=== PATIENT | female | born 1940 | race Caucasian/White ===

== ENCOUNTER 2018-01-15 12:00 | Emergency (ER) | payer MEDICARE, BC ==
--- NOTE | 2018-01-15 12:37 | RAD ---
SINGLE VIEW OF THE CHEST: Comparison: 06-05-12 History: Cough for one week. FINDINGS: Single view of the chest shows a normal sized cardiomediastinal silhouette. There is no evidence of c onsolidation, mass, or pleural effusion. Bone anchors are seen in the right humerus from prior right shoulder surgery. IMPRESSION: No evidence of acute cardiopulmonary disease. POS: [facility]
[2018-01-15 12:43] LABS: #Basophils 0.1 thou/uL (0.0-0.2); #Eosinphils 0.2 thou/uL (0.0-0.7); #Lymphocytes 1.4 thou/uL (1.20-3.40); #Monocytes 0.5 thou/uL (0.11-0.59); #Neutrophils 3.4 thou/uL (1.40-6.50); %Basophils 1.6 % (0.0-1.0); %Eosinophils 2.7 % (0.0-10.0); %Lymphocytes 24.3 % (21.0-51.0); %Monocytes 9.5 % (0.0-10.0); %Neutrophils 61.8 % (42.0-75.0); Hemoglobin 13.1 g/dL (12.0-16.0); Mean Corpuscular HGB CONC 34.3 g/dL (32.0-36.0); Mean Corpuscular Hemoglobin 30.6 pg (27.0-31.0); Mean Corpuscular Volume 89.2 fL (78.0-98.0); Mean Platelet Volume 9.9 fL (7.4-10.4); Platelet Count 138 thou/uL (130-400); RBC Distribution Width 11.2 % (11.5-14.5); Red Blood Cell (RBC) Count 4.27 mill/uL (4.20-5.40); White Blood Cell (WBC) Count 5.5 thou/uL (4.8-10.8)
[2018-01-15 12:56] LABS: ALT (SGPT) 21 U/L (8-55); AST (SGOT) 20 U/L (5-34); Albumin 4.2 g/dL (3.4-4.8); Alkaline Phosphatase 80 U/L (40-150); Anion Gap 11 mmol/L (10-20); BUN (Urea Nitrogen) 16 mg/dL (9.8-20.1); Bilirubin, Total 0.8 mg/dL (0.2-1.2); CK (CPK) 78 U/L (29-168); Calc. Creatinine Clearance 0 mL/min (70-130); Calcium 9.4 mg/dL (7.8-10.44); Carbon Dioxide 28 mmol/L (23-31); Chloride 108 mmol/L (98-107); Estimated GFR-MDRD 61; Globulin 2.1 g/dL (2.4-3.5); Glucose 136 mg/dL (83-110); Potassium 3.9 mmol/L (3.5-5.1); Protein, Total 6.3 g/dL (6.0-8.3); Sodium 143 mmol/L (136-145)
[2018-01-15 12:57] LABS: CKMB 1.7 ng/mL (0-6.6); Troponin I Less than 0.010 ng/mL (< 0.028)
== END 2018-01-15 13:21 | disposition home or self-care (01) ==
LOC: SCSER 12:00
DX: L03.114 Cellulitis of left upper limb (principal); I25.2 Old myocardial infarction; E03.9 Hypothyroidism, unspecified; F41.9 Anxiety disorder, unspecified; F32.9 Major depressive disorder, single episode, unspecified; Z79.899 Other long term (current) drug therapy
CPT/HCPCS: 71045; 80053; 82553; 84484; 85025; 93005

== ENCOUNTER 2019-03-23 14:34 | Outpatient (CLI) | payer MEDICARE, BC ==
--- NOTE | 2019-03-23 15:04 | RAD ---
EXAM: Chest PA and lateral: HISTORY: Chest pain. Patient fell onto left side on Friday. COMPARISON: 01/15/2018 FINDINGS: Heart: Normal cardiac silhouette. There is a density projecting over the left hemidiaphragm and left heart border. The possibility left diaphragmatic hernia versus eventration of the left hemidiaphragm is raised. Aorta: Unremarkable Pulmonary vessels: Normal Costophrenic angles: Costophrenic angles are clear. Lungs: No masses or consolidation. Hyperinflation with chronic changes. Pneumothorax: No pneumothorax Osseous structures: No osseous abnormalities IMPRESSION: 1. Hyperinflation. Chronic changes. 2. Left diaphragmatic hernia versus eventration of the left hemidiaphragm 3. No pneumothorax.
--- NOTE | 2019-03-23 15:07 | RAD ---
3 VIEWS LEFT CHEST WALL: Date: 03/23/19 INDICATION: History of fall with left-sided rib pain. COMPARISON: Prior chest radiograph dated 01/15/18. 2 view chest radiograph dated 03/23/19. FINDINGS: There is a stable, fat-containing left Bochdalek's hernia. No pneumothorax is evident. 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 No displaced left-ion ed rib fracture is evident. There is mild thoracolumbar scoliosis. IMPRESSION: No displaced left-sided rib fracture. POS: [facility]
== END 2019-03-23 14:35 | disposition home or self-care (01) ==
LOC: BICRAD 14:34
PROVIDERS: ATTEND Internal Medicine
DX: R07.89 Other chest pain (principal); Z91.81 History of falling; J98.4 Other disorders of lung
CPT/HCPCS: 71046

== ENCOUNTER 2019-08-16 10:09 | Outpatient (CLI) | payer MEDICARE, BC ==
--- NOTE | 2019-08-16 12:22 | BD ---
BONE DENSITOMETRY: Date: 08/16/2019 HISTORY: Postmenopausal osteoporosis screening. FINDINGS: Lumbar Spine: BMD (g/cm2) L1 0.820 T-Score: -1.5 L2 0.848 T-Score: -1.6 L3 0.962 T-Score: -1.1 L4 1.002 T-Score: -0.5 Total 0.919 T-Score: -1.2 Left Femoral Neck: 0.600 T-Score: -2.2 Total Femur: 0.876 T-Score: -0.5 IMPRESSION: Bone mineral density of the lumbar spine and femoral neck both indicate osteopenia. POS: [facility]
== END 2019-08-16 10:10 | disposition home or self-care (01) ==
LOC: BICMAMMO 10:09
PROVIDERS: ATTEND Internal Medicine
DX: M81.0 Age-related osteoporosis without current pathological fracture (principal); M85.89 Other specified disorders of bone density and structure, multiple sites
CPT/HCPCS: 77080

== ENCOUNTER 2025-03-15 09:02 | Outpatient (CLI) | payer MEDICARE | END 2025-03-15 09:03 | disposition home or self-care (01) | LOC: SCSMRI 09:02 | PROVIDERS: ATTEND Pain Medicine Interventional Pain Medicine | DX: M48.062 Spinal stenosis, lumbar region with neurogenic claudication (principal); M51.369 Other intervertebral disc degeneration, lumbar region without mention of lumbar back pain or lower extremity pain; M47.816 Spondylosis without myelopathy or radiculopathy, lumbar region; M51.379 Other intervertebral disc degeneration, lumbosacral region without mention of lumbar back pain or lower extremity pain; M47.817 Spondylosis without myelopathy or radiculopathy, lumbosacral region; M51.35 Other intervertebral disc degeneration, thoracolumbar region | CPT/HCPCS: 72148 ==

== ENCOUNTER 2025-03-15 09:08 | Outpatient (CLI) | payer MEDICARE | END 2025-03-15 09:09 | disposition home or self-care (01) | LOC: SCSRAD 09:08 | PROVIDERS: ATTEND Pain Medicine Interventional Pain Medicine | DX: M47.816 Spondylosis without myelopathy or radiculopathy, lumbar region (principal); M41.9 Scoliosis, unspecified; M43.17 Spondylolisthesis, lumbosacral region; M48.062 Spinal stenosis, lumbar region with neurogenic claudication; M51.369 Other intervertebral disc degeneration, lumbar region without mention of lumbar back pain or lower extremity pain; M51.379 Other intervertebral disc degeneration, lumbosacral region without mention of lumbar back pain or lower extremity pain; M51.35 Other intervertebral disc degeneration, thoracolumbar region | CPT/HCPCS: 72120; 72148 ==

== ENCOUNTER 2025-06-23 06:33 | Observation (INO) | payer MEDICARE, BC ==
[2025-06-23 08:02] LABS: ALT (SGPT) 8 U/L (Less than 34); AST (SGOT) 27 U/L (11-34); Albumin 3.9 g/dL (3.1-4.5); Alkaline Phosphatase 60 U/L (40-110); Anion Gap 9 mmol/L (10-20); BUN (Urea Nitrogen) 11 mg/dL (9.8-20.1); Bilirubin, Total 1.1 mg/dL (0.3-1.2); Calc. Creatinine Clearance 0 mL/min (70-130); Calcium 9.0 mg/dL (7.8-10.44); Carbon Dioxide 27 mmol/L (23-31); Chloride 105 mmol/L (98-107); Globulin 2.5 g/dL (2.4-3.5); Glucose 94 mg/dL (83-110); Potassium 3.4 mmol/L (3.5-5.1); Sodium 138 mmol/L (136-145)
[2025-06-23 08:03] LABS: Magnesium 1.8 mg/dL (1.6-2.6)
[2025-06-23 08:09] LABS: #Basophils 0.05 10x3/uL (0.0-0.2); #Eosinophils 0.14 10x3/uL (0.0-0.7); #Monocytes 0.46 10x3/uL (0.11-0.59); #Neutrophils 2.09 10x3/uL (1.40-6.50); %Basophils 1.3 % (0.0-1.0); %Eosinophils 3.7 % (0.0-10.0); %Lymphocytes 27.5 % (21.0-51.0); %Monocytes 12.0 % (0.0-10.0); %Neutrophils 54.7 % (42.0-75.0); Hematocrit 32.3 % (36.0-47.0); Hemoglobin 10.4 g/dL (12.0-16.0); Mean Corpuscular Hemoglobin 29.8 pg (27.0-31.0); Mean Corpuscular Volume 92.6 fL (78.0-98.0); Platelet Count 126 10x3/uL (130-400); Red Blood Cell (RBC) Count 3.49 mill/uL (4.20-5.40); White Blood Cell (WBC) Count 3.82 10x3/uL (4.8-10.8)
[2025-06-23 08:24] LABS: Free T4 (Free Thyroxine) 1.15 ng/dL (0.70-1.48)
[2025-06-23] MEDS ORDERED: Aspirin Chewable 81 MG TAB ONE (08:33)
[2025-06-23 08:57] LABS: Bacteria/HPF None Seen HPF (None Seen); CAUTI Indications for Culture Alt mental st,lethar; Glucose, Urine (Dipstick) Normal (Negative); Leukocyte Negative Leu/uL (Negative); Protein, Urine (Dipstick) Negative (Neg-Trace); RBC/HPF 0-3 HPF (0-3); Specific Gravity, Urine 1.012 (1.002-1.036); WBC/HPF 0-3 HPF (0-3)
[2025-06-23 09:01] LABS: Urine Culture Reflex No No
[2025-06-23] MEDS ORDERED: hydrALAZINE 20 MG/ML VIAL SLOW IVP PRN (11:00)
[2025-06-23] MEDS ORDERED: Ondansetron PF 4 MG/2 ML Vial IVP PRN (11:18)
[2025-06-23] MEDS ORDERED: Senokot S 8.6-50 MG TAB PO PRN (11:18)
[2025-06-23] MEDS ORDERED: Calcium Carbonate 500 MG ChewTAB PO PRN (11:18)
[2025-06-23] MEDS ORDERED: Acetaminophen 325 MG TAB PO PRN (11:18)
[2025-06-23 15:57] VITALS: BMI 23.0
[2025-06-23] MEDS: Carvedilol 3.125 MG TAB PO SCH (18:18)
[2025-06-23] MEDS: ALPRAZolam 0.5 MG TAB PO PRN (22:06)
[2025-06-23] MEDS: Melatonin 3 MG TAB PO PRN (22:06)
[2025-06-24 04:43] LABS: Anion Gap 13 mmol/L (10-20); BUN (Urea Nitrogen) 10 mg/dL (9.8-20.1); Calc. Creatinine Clearance 44 mL/min (70-130); Calcium 8.8 mg/dL (7.8-10.44); Carbon Dioxide 27 mmol/L (23-31); Cardiac Risk 3.5 (Less than 4.5); Chloride 106 mmol/L (98-107); Cholesterol 108 mg/dl (< 200 Desired); Glucose 83 mg/dL (83-110); HDL Cholesterol 31 mg/dL (>60 Neg Risk); LDL Cholesterol, Calculated 62 mg/dL; Potassium 3.5 mmol/L (3.5-5.1); Sodium 142 mmol/L (136-145); Triglycerides 74 mg/dL (Less than 150)
[2025-06-24 04:52] LABS: #Basophils 0.05 10x3/uL (0.0-0.2); #Eosinophils 0.16 10x3/uL (0.0-0.7); #Monocytes 0.51 10x3/uL (0.11-0.59); #Neutrophils 1.92 10x3/uL (1.40-6.50); %Basophils 1.3 % (0.0-1.0); %Eosinophils 4.3 % (0.0-10.0); %Lymphocytes 29.1 % (21.0-51.0); %Monocytes 13.6 % (0.0-10.0); %Neutrophils 51.2 % (42.0-75.0); Hematocrit 30.1 % (36.0-47.0); Hemoglobin 9.8 g/dL (12.0-16.0); Mean Corpuscular Hemoglobin 29.9 pg (27.0-31.0); Mean Corpuscular Volume 91.8 fL (78.0-98.0); Platelet Count 117 10x3/uL (130-400); Red Blood Cell (RBC) Count 3.28 mill/uL (4.20-5.40); White Blood Cell (WBC) Count 3.75 10x3/uL (4.8-10.8)
[2025-06-24] MEDS: Citalopram 20 MG TAB PO SCH (10:29)
[2025-06-24] MEDS: Aspirin 81 mg Enteric Coated Tablet PO SCH (10:29)
[2025-06-24] MEDS: Pantoprazole 40 MG DR.TAB PO SCH (10:29)
[2025-06-24] MEDS: Isosorbide Mononitrate 30 MG ER.TAB.S PO SCH (10:29)
[2025-06-24] MEDS: Losartan 25 MG TAB PO SCH (10:30)
[2025-06-24] MEDS: Enoxaparin 40 MG (0.4 mL) SYRINGE SC SCH (10:30)
[2025-06-24] MEDS: FLU (Fluad Triv) 25-26 (65UP)PF 45 MCG/0.5 ML Syringe IM ONE (10:35)
[2025-06-24 11:43] VITALS: TEMP 97.9
[2025-06-24 14:39] VITALS: BP 154/71
== END 2025-06-24 16:24 | disposition home health service (06) ==
LOC: ERS 06:33 → ERHOLD 10:18 → 2SE 16:01
PROVIDERS: ADMIT Internal Medicine; ATTEND Internal Medicine
DX: I63.9 Cerebral infarction, unspecified (principal); I10 Essential (primary) hypertension; I25.10 Atherosclerotic heart disease of native coronary artery without angina pectoris; E78.5 Hyperlipidemia, unspecified; E03.9 Hypothyroidism, unspecified; E87.6 Hypokalemia; F41.9 Anxiety disorder, unspecified; F32.A Depression, unspecified; F39 Unspecified mood [affective] disorder; Z95.5 Presence of coronary angioplasty implant and graft; Z90.89 Acquired absence of other organs; Z79.82 Long term (current) use of aspirin; Z79.899 Other long term (current) drug therapy
CPT/HCPCS: 70450; 70551; 71046; 80048; 80061; 81001; 83735; 84439; 85025; 90653; 93005; 93880; 99285; J1650; 36415; 80053; 84443; 96372; G0378